=== PATIENT | male | born 1930 | race Caucasian/White ===

== ENCOUNTER 2019-02-05 08:43 | Day surgery (SDC) | payer OTHER ==
[~2019-02-05 08:43] MED LIST: KETOROLAC TROMETHAMINE 0.45% 4 DROP/0.4 ML DROPERETTE OS PRN; LIDOCAINE 1% INJ-PF (10 MG/ML) 30 ML SDV ONE
[2019-02-05] MEDS: TROPICAMIDE 1% OPH SOLN 15 ML OS PRN ×3 (09:10→09:31)
[2019-02-05] MEDS: BESIFLOXACIN HCL 0.6% OPH SUSP 5 ML BOTTLE OS PRN ×4 (09:10→10:12)
[2019-02-05] MEDS: TETRACAINE HCL 0.5% OPH SOLN 4 ML OS PRN ×4 (09:10→09:55)
[2019-02-05] MEDS: CYCLOPENTOLATE 0.2%/PHENYLEPHRINE 1% OPH SOLN 2 ML OS PRN ×3 (09:10→09:31)
[2019-02-05] MEDS ORDERED: MIDAZOLAM 2 MG/2 ML INJ ONE (09:50)
[2019-02-05] MEDS ORDERED: FENTANYL CITRATE INJ/PF 100 MCG/2 ML AMPUL ONE (09:50)
[2019-02-05] MEDS: EPINEPHRINE INJ/PF 1 MG/1 ML AMPULE ONE ×2 (10:02)
[2019-02-05] MEDS: CHONDR SU A NA/HYALUR INTRAOC KIT (SURGICARE) ONE ×2 (10:02)
[2019-02-05] MEDS: LIDOCAINE 1%/PHENYLEPHRINE 1.5% 1 ML VIAL ONE ×2 (10:02)
[2019-02-05] MEDS: DORZOLAMIDE HCL 2%/TIMOLOL MALEAT 0.5% OPH SOLN 10 ML OS PRN ×2 (10:12)
[2019-02-05] MEDS: TOBRAMYCIN SULFATE/DEXAMETH OPH OINTMENT 3.5 GM ONE ×2 (10:12)
== END 2019-02-05 11:00 | disposition home or self-care (01) ==
LOC: SC 08:43
PROVIDERS: ATTEND Ophthalmology
DX: H25.12 Age-related nuclear cataract, left eye (principal); J44.9 Chronic obstructive pulmonary disease, unspecified; I11.9 Hypertensive heart disease without heart failure; N18.9 Chronic kidney disease, unspecified; I48.91 Unspecified atrial fibrillation; Z79.899 Other long term (current) drug therapy
CPT/HCPCS: 66984; 00142; J2250; J3490 ×3; J0171; J3010; J2370; 142

== ENCOUNTER 2019-02-17 09:13 | Day surgery (SDC) | payer OTHER ==
[~2019-02-17 09:13] MED LIST changes: +DORZOLAMIDE HCL 2%/TIMOLOL MALEAT 0.5% OPH SOLN 10 ML OD PRN; +KETOROLAC TROMETHAMINE 0.45% 4 DROP/0.4 ML DROPERETTE OD PRN; -KETOROLAC TROMETHAMINE 0.45% 4 DROP/0.4 ML DROPERETTE OS PRN; -LIDOCAINE 1% INJ-PF (10 MG/ML) 30 ML SDV ONE; +MIDAZOLAM 2 MG/2 ML INJ ONE; +TOBRAMYCIN SULFATE/DEXAMETH OPH OINTMENT 3.5 GM ONE
[2019-02-17] MEDS: TETRACAINE HCL 0.5% OPH SOLN 4 ML OD PRN ×4 (10:40→11:05)
[2019-02-17] MEDS: TROPICAMIDE 1% OPH SOLN 15 ML OD PRN ×3 (10:45→11:02)
[2019-02-17] MEDS: CYCLOPENTOLATE 0.2%/PHENYLEPHRINE 1% OPH SOLN 2 ML OD PRN ×3 (10:45→11:02)
[2019-02-17] MEDS: BESIFLOXACIN HCL 0.6% OPH SUSP 5 ML BOTTLE OD PRN ×3 (10:46→11:25)
[2019-02-17] MEDS ORDERED: METOPROLOL TARTRATE PF/INJ 5 MG/5 ML SDV IV ONE (11:00)
[2019-02-17] MEDS: EPINEPHRINE INJ/PF 1 MG/1 ML AMPULE ONE ×2 (11:13)
[2019-02-17] MEDS: CHONDR SU A NA/HYALUR INTRAOC KIT (SURGICARE) ONE ×2 (11:13)
[2019-02-17] MEDS: LIDOCAINE 1%/PHENYLEPHRINE 1.5% 1 ML VIAL ONE ×2 (11:13)
== END 2019-02-17 12:16 | disposition home or self-care (01) ==
LOC: SC 09:13
PROVIDERS: ATTEND Ophthalmology
DX: H25.11 Age-related nuclear cataract, right eye (principal); Z98.42 Cataract extraction status, left eye; J44.9 Chronic obstructive pulmonary disease, unspecified; I13.10 Hypertensive heart and chronic kidney disease without heart failure, with stage 1 through stage 4 chronic kidney disease, or unspecified chronic kidney disease; N18.9 Chronic kidney disease, unspecified; I48.91 Unspecified atrial fibrillation; Z79.01 Long term (current) use of anticoagulants; Z79.899 Other long term (current) drug therapy; Z87.891 Personal history of nicotine dependence; Z88.8 Allergy status to other drugs, medicaments and biological substances; Z88.5 Allergy status to narcotic agent; Z79.51 Long term (current) use of inhaled steroids
CPT/HCPCS: 00142; 66984; V2632; J2250; J3490 ×4; J0171; J2370; 142

== ENCOUNTER 2019-11-20 09:58 | Emergency (ER) | payer OTHER, MEDICARE ==
--- NOTE | 2019-11-20 10:22 | ER Document Report ---
ED Medical Screen (RME) - General Chief Complaint: Vertigo Stated Complaint: DIZZINESS Time Seen by Provider: 11/20/19 10:14 Primary Care Provider: [facility] [Primary Care Provider] - Follow up as needed Mode of Arrival: Wheelchair Information source: Patient Notes: Patient presents with a complaint of ataxia. Patient states that he occasionally has dizziness in which he has difficulty walking. Patient denies any headache, nausea or vomiting. Patient poor historian. Patient did drive himself here. Patient takes warfarin although is uncertain why. I have greeted and performed a rapid initial assessment of this patient. A comprehensive ED assessment and evaluation of the patient, analysis of test results and completion of the medical decision making process will be conducted by additional ED providers. TRAVEL OUTSIDE OF THE [place] IN LAST 30 DAYS: No - Related Data Allergies/Adverse Reactions: azithromycin Allergy (Verified 02/14/19 10:21) furosemide [From Lasix] Allergy (Verified 02/14/19 10:21) lisinopril Allergy (Verified 02/14/19 10:21) tramadol Allergy (Verified 02/14/19 10:21) Home Medications: chlorthalidone, losartan, metoprolol, warfarin Past Medical History - Social History Chew tobacco use (# tins/day): No Frequency of alcohol use: None Drug Abuse: None - Past Medical History Cardiac Medical History: Reports: Hx Hypertension Denies: Hx Heart Attack Pulmonary Medical History: Denies: Hx Asthma Neurological Medical History: Denies: Hx Cerebrovascular Accident, Hx Seizures GI Medical History: Denies: Hx Hepatitis, Hx Hiatal Hernia, Hx Ulcer Infectious Medical History: Denies: Hx Hepatitis Past Surgical History: Denies: Hx Open Heart Surgery, Hx Pacemaker Physical Exam - Vital signs Vitals: Temp Pulse Resp BP Pulse Ox 98.5 F 87 20 149/89 H 96 11/20/19 10:05 11/20/19 10:05 11/20/19 10:05 11/20/19 10:05 11/20/19 10:05 - Neurological Orientation: AAOx4 [place] Coma Scale Eye Opening: Spontaneous [place] Coma Scale Verbal: Oriented [place] Coma Scale Motor: Obeys Commands Huseyin Coma Scale Total: 15 Speech: Normal Cerebellar coordination: Finger-nose rhombey Course - Vital Signs Vital signs: Temp Pulse Resp BP Pulse Ox 98.5 F 87 20 149/89 H 96 11/20/19 10:06 11/20/19 10:05 11/20/19 10:05 11/20/19 10:05 11/20/19 10:05 Doctor's Discharge - Discharge [facility]errals: [facility] [[facility]] - Follow up as needed
[2019-11-20 10:42] LABS: ABSOLUTE BASOPHILS # (AUTO) 0.1 10^3/uL (0.0-0.2); ABSOLUTE EOSINOPHILS # (AUTO) 0.2 10^3/uL (0.0-0.6); ABSOLUTE LYMPHOCYTES (AUTO) 1.3 10^3/uL (0.5-4.7); ABSOLUTE MONOCYTES (AUTO) 0.8 10^3/uL (0.1-1.4); ABSOLUTE NEUT (AUTO) 5.6 10^3/uL (1.7-8.2); BASOPHILS % (AUTO) 1.4 % (0-2); EOSINOPHILS % (AUTO) 2.9 % (0-6); HEMATOCRIT 39.9 % (37.9-51.0); HEMOGLOBIN 13.8 g/dL (13.5-17.0); LYMPHOCYTES % (AUTO) 16.3 % (13-45); MEAN CORPUSCULAR HEMOGLOBIN 31.9 pg (27.0-33.4); MEAN CORPUSCULAR HGB CONC 34.5 g/dL (32.0-36.0); MEAN CORPUSCULAR VOLUME 92 fl (80-97); MONOCYTES % (AUTO) 9.6 % (3-13); PLATELET COUNT 184 10^3/uL (150-450); RED BLOOD COUNT 4.32 10^6/uL (4.35-5.55); RED CELL DISTRIBUTION WIDTH 13.6 % (11.5-14.0); SEGMENTED NEUTROPHILS % (AUTO) 69.8 % (42-78); TOTAL CELLS COUNTED % (AUTO) 100 %; WHITE BLOOD COUNT 8.1 10^3/uL (4.0-10.5)
[2019-11-20 10:49] LABS: PARTIAL THROMBOPLASTIN TIME 42.4 SEC (23.5-35.8)
[2019-11-20 10:58] LABS: INTERNATIONAL RATION (INR) 1.43; PROTHROMBIN TIME 17.6 SEC (11.4-15.4)
[2019-11-20 11:01] LABS: ALBUMIN 3.8 g/dL (3.5-5.0); ALKALINE PHOSPHATASE 122 U/L (38-126); ANION GAP 10 (5-19); ASPARTATE AMINO TRANSFERASE 23 U/L (17-59); BILIRUBIN,DIRECT 0.3 mg/dL (0.0-0.4); BILIRUBIN,TOTAL 0.8 mg/dL (0.2-1.3); BLOOD UREA NITROGEN 53 mg/dL (7-20); CALCIUM 8.8 mg/dL (8.4-10.2); CARBON DIOXIDE 23 mmol/L (22-30); CHLORIDE 105 mmol/L (98-107); GLUCOSE 114 mg/dL (75-110); POTASSIUM 4.1 mmol/L (3.6-5.0)
--- NOTE | 2019-11-20 11:35 | RADIOLOGY REPORT (SQ) ---
EXAM DESCRIPTION: CHEST SINGLE VIEW IMAGES COMPLETED DATE/TIME: 11/20/2019 11:09 am REASON FOR STUDY: dizziness, ataxia COMPARISON: None. EXAM PARAMETERS: NUMBER OF VIEWS: One view. TECHNIQUE: Single frontal radiographic view of the chest acquired. RADIATION DOSE: NA LIMITATIONS: None. FINDINGS: LUNGS AND PLEURA: No opacities, masses or pneumothorax. No pleural effusion. MEDIASTINUM AND HILAR STRUCTURES: No masses. Contour normal. HEART AND VASCULAR STRUCTURES: Heart normal in size. Normal vasculature. BONES: No acute findings. HARDWARE: None in the chest. OTHER: No other significant finding. IMPRESSION: NO ACUTE RADIOGRAPHIC FINDING IN THE CHEST. TECHNICAL DOCUMENTATION: JOB ID: [id number] 2010 [employer]- All Rights Reserved Reading location - IP/workstation name: [email or web address]
--- NOTE | 2019-11-20 11:44 | RADIOLOGY REPORT (SQ) ---
EXAM DESCRIPTION: CT HEAD WITHOUT IMAGES COMPLETED DATE/TIME: 11/20/2019 11:36 am REASON FOR STUDY: dizziness, ataxia COMPARISON: None. TECHNIQUE: Axial images acquired through the brain without intravenous contrast. Images reviewed wi th bone, brain and subdural windows. Additional sagittal and coronal reconstructions were generated. Images stored on PACS. All CT scanners at this facility use dose modulation, iterative reconstruction, and/or weight based d osing when appropriate to reduce radiation dose to as low as reasonably achievable (ALARA). [facility]: Dose Right [facility]: CareDose [facility]: Dose Right [facility]: Teradose 4D [facility]: Elixserve RADIATION DOSE: CT Rad equipment meets quality standard of care and radiation dose reduction techniq ues were employed. CTDIvol: 53.2 mGy. DLP: 1097 mGy-cm. mGy. LIMITATIONS: None. FINDINGS: VENTRICLES: Prominent. CEREBRUM: No masses. No hemorrhage. No midline shift. Areas of low density in the white matter mos t likely due to chronic micro-vascular ischemic change. No evidence for acute infarction. CEREBELLUM: No masses. No hemorrhage. No alteration of density. No evidence for acute infarction. EXTRAAXIAL SPACES: Mild age-related involutional change. No fluid collections. No masses. ORBITS AND GLOBE: No intra- or extraconal masses. Normal contour of globe without masses. CALVARIUM: No fracture. PARANASAL SINUSES: No fluid or mucosal thickening. SOFT TISSUES: No mass or hematoma. OTHER: No other significant finding. IMPRESSION: MILD CHRONIC CHANGES OF ATROPHY AND MICROVASCULAR ISCHEMIA. NO ACUTE PROCESS. EVIDENCE OF ACUTE STROKE: NO. TECHNICAL DOCUMENTATION: JOB ID: [id number] Quality ID # [id number]: Final reports with documentation of one or more dose reduction techniques (e.g., Au tomated exposure control, adjustment of the mA and/or kV according to patient size, use of iterative reconstruction technique) 2010 [employer]- All Rights Reserved Reading location - IP/workstation name: [email or web address]
--- NOTE | 2019-11-20 12:22 | ER Document Report ---
ED General - General Chief Complaint: Vertigo Stated Complaint: DIZZINESS Time Seen by Provider: 11/20/19 10:14 [facility] Care [facility]: [facility] [[facility]] - Follow up as needed Mode of Arrival: Wheelchair TRAVEL OUTSIDE OF THE [place] IN LAST 30 DAYS: No - HPI Notes: Chief complaint: Episodic dizziness History of present illness: Mr. 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 Since then he gets episodes once or twice a week described as unsteadiness and brief sensation of the room spinning. Interestingly he is recently been [facility] for [facility]-up but "did not think it was important" and therefore did not bring the issue up with him. He is decided now that this is bothering him more and he wants to "get it fixed". He denies any focal neurologic symptoms. He denies any associated nausea vomiting. No associated headache or difficulty speaking or swallowing. He says he occasionally feels unsteady on his feet but is not experienced any falls. He does live alone and continues to drive and prepare his own meals. Patient says he was told at the time of his recent [facility] visit that he had some "kidney problems" identified on his blood work and he has been referred to a gas station service attendant but has not been to this appointment yet. He denies any burning or difficulty with urination. He denies any hematuria. - Related Data Allergies/Adverse Reactions: azithromycin Allergy (Verified 02/14/19 10:21) furosemide [From Lasix] Allergy (Verified 02/14/19 10:21) lisinopril Allergy (Verified 02/14/19 10:21) tramadol Allergy (Verified 02/14/19 10:21) Home Medications: chlorthalidone, losartan, metoprolol, warfarin Past Medical History - General Information source: Patient, [facility] Records - Social History Smoking Status: Never Smoker Chew tobacco use (# tins/day): No Frequency of alcohol use: None Drug Abuse: None Family History: Reviewed & Not Pertinent - Past Medical History Cardiac Medical History: Reports: Hx Atrial Fibrillation, Hx Hypertension Denies: Hx Heart Attack Pulmonary Medical History: Denies: Hx Asthma EENT Medical History: Reports: Other - Mnire's disease Neurological Medical History: Denies: Hx Cerebrovascular Accident, Hx Seizures Endocrine Medical History: Denies: Hx Diabetes Mellitus Type 1, Hx Diabetes Mellitus Type 2 GI Medical History: Denies: Hx Hepatitis, Hx Hiatal Hernia, Hx Ulcer Infectious Medical History: Denies: Hx Hepatitis Surgical Hx: Negative Past Surgical History: Denies: Hx Open Heart Surgery, Hx Pacemaker Review of Systems - Review of Systems Notes: Constitutional: Negative for fever. HENT: Negative for sore throat. Eyes: Negative for visual changes. Cardiovascular: Negative for chest pain. Respiratory: Negative for shortness of breath. Gastrointestinal: Negative for abdominal pain, vomiting or diarrhea. Genitourinary: Negative for dysuria. Musculoskeletal: Negative for back pain. Skin: Negative for rash. Neurological: Negative for headaches, focal weakness or numbness. 10 point ROS negative except as marked above and in HPI. Physical Exam - Vital signs Vitals: Temp Pulse Resp BP Pulse Ox 98.5 F 87 20 149/89 H 96 11/20/19 10:05 11/20/19 10:05 11/20/19 10:05 11/20/19 10:05 11/20/19 10:05 - Notes Notes: GENERAL: Pleasant elderly gentleman appearing in no acute distress. SKIN: Good turgor no rashes. HEAD: Normocephalic atraumatic. EYES: PERRLA. EOMI. Conjunctivae and sclerae clear. EARS: CANALS AND TMS CLEAR. Mildly diminished hearing bilaterally. NOSE: CLEAR. MOUTH: Moist mucosa. Good dentition. No stridor or edema. No drooling. NECK: Supple. No masses or thyromegaly. No adenopathy. Carotids 2+ without bruits. No JVD. BACK: Symmetrical without tenderness. CHEST: Respirations unlabored. Breath sounds clear and symmetrical. HEART: Regular rhythm. No murmur gallop or rub. ABDOMEN: Soft nontender without masses, organomegaly or rebound. Bowel sounds normally active. No bruits. GENITALIA: Deferred. EXTREMITIES: No edema. No calf tenderness. Cap refill less than 1.5 seconds. Dorsalis pedis and posterior tibial pulses 3+ and symmetrical. NEUROLOGICAL: Minimal generalized tremor which patient says he has had lifelong. GCS 15. Alert and oriented x3. Normal gait. Fluent speech. Cranial nerves II through XII intact. Sensorimotor and cerebellar normal. Normal tone. PSYCHIATRIC: Appropriate affect. Course - Re-evaluation Re-evalutation: 11/20/19 12:30 Nonfocal neurologic exam. Patient shows no orthostatic drop in his blood pr essure. No carotid bruits are identified and I do not hear cardiac murmur. He has chronic atrial field but his ventricular rate is well controlled and he is appropriately anticoagulated. His head CT today was unremarkable per radiologist. He does have a past history of Mnire's disease. I think at this point we can reasonably put him back on some meclizine and have him follow-up with ENT outpatient. He does have some impairment of his kidney function with a creatinine of about 3. This is apparently an ongoing situation being followed by the [place] and he has referral already to nephrology. I do not think this is related to the symptoms he is currently experiencing. Findings, clinical impression and plan of treatment have been discussed with patient/family. Understanding of current findings and recommendations has been acknowledged by them and there is agreement regarding disposition and follow-up. - Vital Signs Vital signs: Temp Pulse Resp BP Pulse Ox 98.5 F 87 23 H 132/87 H 96 11/20/19 10:06 11/20/19 10:05 11/20/19 12:01 11/20/19 12:01 11/20/19 10:05 - Laboratory Result Diagrams: 11/20/19 10:33 11/20/19 10:33 Laboratory results interpreted by me: 11/20/19 11/20/19 11/20/19 10:33 10:33 10:33 RBC 4.32 L PT 17.6 H APTT 42.4 H BUN 53 H Creatinine 3.15 H Est GFR ( Amer) 23 L Est GFR (MDRD) Non-Af 19 L Glucose 114 H - Diagnostic Test Radiology reviewed: Reports reviewed - Noncontrast head CT per radiologist: No acute changes - EKG Interpretation by Me Additional EKG results interpreted by me: 11/20/19 12:22 Twelve-lead EKG from 1037 hrs. reviewed contemporaneously by me demonstrating atrial fibrillation with a ventricular response of [address]/T wave changes identified. QRS axis is -10 degrees. There is no prior tracing for comparison. Impression atrial fibrillation with controlled ventricular response. Indication for current study: Dizziness. Discharge - Discharge Clinical Impression: Vertigo Condition: Stable Disposition: HOME, SELF-CARE Additional Instructions: Meniere's Disease Meniere's disease is a problem in the inner ear. There are repeated attacks of whirling dizziness (called "vertigo") and nausea. Each attack lasts a few hours. Attacks can occur days or years apart. Sometimes there's a sense of fullness in one ear during an attack. There's usually a loss of hearing in the higher frequencies (you might not be aware of the loss), and ringing in the ears. Individual attacks of Meniere's disease are treated with medicine such as meclizine (Antivert). Stronger medication may be needed if you are vomiting. Sometimes we use a mild tranquilizer to suppress the vertigo. Rest in bed. You should not drive or operate machinery until completely better. Some cases of Meniere's disease benefit from long-term medicine. You may need to see a specialist for evaluation. If there are new symptoms, such as decreased hearing or vision, severe headache, weakness or faintness, or confusion, call the physician.Vertigo You have experienced an episode of vertigo -- a whirling dizziness which may be accompanied by nausea and vomiting or staggering. Vertigo is often caused by an irritation of the inner ear, in which case it is called labyrinthitis. It can also be a symptom of a degenerating inner ear, nerve damage, or brain injury. Your physician has evaluated you to determine whether any further testing is necessary. Vertigo is often treated with dramamine or meclizine. These medications are helpful, but stronger medication may be needed if you are vomiting. Rest in bed. You should not drive or operate machinery until completely better. It may take one to three weeks for recovery. If there are new symptoms, such as decreased hearing or vision, severe headache, weakness or faintness, or confusion, call the physician. You are being provided the name of an on-call ear nose and throat doctor you can see for a follow-up visit as an outpatient. You will need to call to arrange an appointment in their office. You may return to the emergency department as needed for new or worsening symptoms. Remain on all your current medications. Also be sure to follow-up with a gas station service attendant regarding your abnormal kidney function as was previously recommended by your [facility]. Prescriptions: Meclizine HCl [Antivert 25 mg Tablet] 25 mg PO TID PRN 7 Days #21 tablet PRN Reason: [facility]errals: [facility] [[facility]] - Follow up as needed
[2019-11-20 12:26] VITALS: BP 132/87
--- NOTE | 2019-11-21 11:14 | EKG REPORT ---
SEVERITY:- ABNORMAL ECG - ATRIAL FIBRILLATION, V-RATE 66-128 ABNRM R PROG, CONSIDER ASMI OR LEAD PLACEMENT : Confirmed by: Randi Yap MD 21-Nov-2019 11:13:43
== END 2019-11-20 13:07 | disposition home or self-care (01) ==
LOC: ER 09:58
DX: H81.09 Meniere's disease, unspecified ear (principal); I10 Essential (primary) hypertension; I48.20 Chronic atrial fibrillation, unspecified; Z88.1 Allergy status to other antibiotic agents; Z88.8 Allergy status to other drugs, medicaments and biological substances; Z79.899 Other long term (current) drug therapy; Z79.01 Long term (current) use of anticoagulants
CPT/HCPCS: 36415; 70450; 71045; 80053; 84484; 85025; 85610; 85730; 93005; 93010; 99285

== ENCOUNTER → 2019-12-05 | Outpatient (CLI) | payer OTHER ==
--- NOTE | 2019-12-05 14:56 | RADIOLOGY REPORT (SQ) ---
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 TECHNIQUE: Dynamic and static grayscale images acquired of the kidneys and bladder and recorded on P ACS. Additional selected color Doppler and spectral images recorded. LIMITATIONS: None. FINDINGS: RIGHT KIDNEY: The right kidney measures 9.8 x 3.7 x 5.3 cm. Diffuse increased echogenici ty likely related to the patient's underlying history of liver disease. Cortical marked renal thinni ng. Echogenic punctate calcifications throughout kidney. A 1.6 x 1.6 x 1.7 cm hypoechoic lesion in the upper pole of the kidney. No hydronephrosis. LEFT KIDNEY: The left kidney measures 9.6 x 4.4 x 5.7 cm. Diffuse increased echogenicity throughout kidney, likely consistent with the patient's known history of renal disease. Cortical marked renal thinning. Echogenic foci throughout the kidney may represent punctate calcifications. No hydronephr osis. BLADDER: No masses. The prostate gland measures 4.1 x 3.6 x 3.0 cm. OTHER FINDINGS: No other significant finding. IMPRESSION: 1. Diffuse increased echogenicity of the kidneys, likely consistent with the patient's known history of medical renal disease. Bilateral marked cortical thinning. 2. Punctate bilateral renal calculi. 3. A hypoechoic lesion in the upper pole of the right kidney. Correlation with noncontrast CT renal examination suggested. 4. Additional findings as above. TECHNICAL DOCUMENTATION: JOB ID: [id number] 2010 [employer]- All Rights Reserved Reading location - IP/workstation name: [email or web address]
== END ==
LOC: RAD 12:36
PROVIDERS: ATTEND Physician Assistant Medical
DX: N18.4 Chronic kidney disease, stage 4 (severe) (principal); N20.0 Calculus of kidney; N28.9 Disorder of kidney and ureter, unspecified
CPT/HCPCS: 76770